=== PATIENT | male | born 2000 | race African-American/Black ===

== ENCOUNTER 2018-09-01 16:56 | Emergency (ER) | payer SELFPAY ==
--- NOTE | 2018-09-01 18:19 | EDPHYS ---
Physician Documentation [facility] Name: Bakari Starkey Age: 18 yrs Sex: Male : 2000 Arrival Date: 09/01/2018 Time: 16:59 Bed 7 Private MD: ED Physician Efren Cuevas HPI: 09/01 18:10 This 18 yrs old Black Male presents to ER via Ambulatory with complaints of Sore pm1 Throat, Cough. 18:10 The patient presents with sore throat. The patient describes throat pain as scratchy. pm1 Onset: The symptoms/episode began/occurred yesterday. Severity of symptoms: in the emergency department the symptoms are actually worse. Modifying factors: The symptoms are alleviated by nothing, the symptoms are aggravated by nothing, unaware of sick contact. Associated signs and symptoms: Pertinent positives: cough, flu-like symptoms, myalgias, rhinorrhea, Pertinent negatives chest pain, shortness of breath, vomiting. The patient has not experienced similar symptoms in the past. The patient has not recently seen a physician. No flu vaccination. Historical: - Allergies: 17:06 No Known Allergies; tw2 - Home Meds: 17:06 None [Active]; tw2 - PMHx: 17:06 None; tw2 - PSHx: 17:06 None; tw2 - Immunization history:: Adult Immunizations. - Social history:: Smoking status: Patient/guardian denies using tobacco. - Ebola Screening: : Patient denies exposure to infectious person Patient denies travel to an Ebola-affected area in the 21 days before illness onset. ROS: 18:10 Eyes: Negative for injury, pain, redness, and discharge, Neck: Negative for injury, pm1 pain, and swelling. 18:10 Cardiovascular: Negative for chest pain, palpitations, and edema, Respiratory: Negative for shortness of breath, cough, wheezing, and pleuritic chest pain, Abdomen/GI: Negative for abdominal pain, nausea, vomiting, diarrhea, and constipation, Back: Negative for injury and pain, : Negative for injury, bleeding, discharge, and swelling, MS/Extremity: Negative for injury and deformity, Skin: Negative for injury, rash, and discoloration, Neuro: Negative for headache, weakness, numbness, tingling, and seizure. 18:10 Constitutional: Positive for body aches, fever, Negative for poor PO intake. 18:10 ENT: Positive for rhinorrhea, sore throat, Negative for ear pain, sinus congestion, sinus pain, dental pain, difficulty swallowing, difficulty handling secretions, hoarseness. Exam: 18:10 Constitutional: This is a well developed, well nourished patient who is awake, alert, pm1 and in no acute distress. Head/Face: Normocephalic, atraumatic. Eyes: Pupils equal round and reactive to light, extra-ocular motions intact. Lids and lashes normal. Conjunctiva and sclera are non-icteric and not injected. Cornea within normal limits. Periorbital areas with no swelling, redness, or edema. ENT: Nares patent. No nasal discharge, no septal abnormalities noted. Tympanic membranes are normal and external auditory canals are clear. Oropharynx with no redness, swelling, or masses, exudates, or evidence of obstruction, uvula midline. Mucous membranes moist. Neck: Trachea midline, no thyromegaly or masses palpated, and no cervical lymphadenopathy. Supple, full range of motion without nuchal rigidity, or vertebral point tenderness. No Meningismus. Chest/axilla: Normal chest wall appearance and motion. Nontender with no deformity. No lesions are appreciated. Cardiovascular: Regular rate and rhythm with a normal S1 and S2. No gallops, murmurs, or rubs. Normal PMI, no JVD. No pulse deficits. Respiratory: Lungs have equal breath sounds bilaterally, clear to auscultation and percussion. No rales, rhonchi or wheezes noted. No increased work of breathing, no retractions or nasal flaring. Abdomen/GI: Soft, non-tender, with normal bowel sounds. No distension or tympany. No guarding or rebound. No evidence of tenderness throughout. Back: No spinal tenderness. No costovertebral tenderness. Full range of motion. Skin: Warm, dry with normal turgor. Normal color with no rashes, no lesions, and no evidence of cellulitis. MS/ Extremity: Pulses equal, no cyanosis. Neurovascular intact. Full, normal range of motion. 18:10 Neuro: Orientation: is normal, Motor: is normal, moves all fours, Sensation: is normal, no obvious gross deficits, Gait: Vital Signs: 17:03 BP 148 / 102; Pulse 114; Resp 19; Temp 99.0(TE); Pulse Ox 97% on R/A; Pain 4/10; tw2 17:05 Weight 105.19 kg (M); aj1 MDM: 17:10 Patient medically screened. pm1 18:10 Data reviewed: vital signs. Data interpreted: Pulse oximetry: on room air is 97 %. pm1 Interpretation: normal. Counseling: I had a detailed discussion with the patient and/or guardian regarding: the historical points, exam findings, and any diagnostic results supporting the discharge/admit diagnosis, lab results, the need for outpatient follow up, to return to the emergency department if symptoms worsen or persist or if there are any questions or concerns that arise at home. 09/01 17:16 Order name: Strep; Complete Time: 18:08 pm1 09/01 17:16 Order name: Flu; Complete Time: 18:08 pm1 09/01 18:09 Order name: Throat Culture EDMS Administered Medications: No medications were administered Disposition: 18:55 Co-signature as Attending Physician, Efren Cuevas MD Available for consultation at ps1 all times. . Disposition: 09/01/18 18:18 Discharged to Home. Impression: Influenza due to identified novel influenza A virus. - Condition is Stable. - Discharge Instructions: Influenza, Adult. - Prescriptions for Tamiflu 75 mg Oral Capsule - take 1 tablet by ORAL route every 12 hours for 5 days; 75 tablet. - Work release form, Medication Reconciliation Form, Thank You Letter, Antibiotic Education form. - Follow up: Emergency Department; When: As needed; Reason: Worsening of condition. Follow up: Private Physician; When: 2 - 3 days; Reason: Recheck today's complaints, Continuance of care, Re-evaluation by your physician. - Problem is new. - Symptoms have improved. Signatures: Dispatcher [employer] EDMS Jesus Padilla RN RN hj Andrzej Hammond, VETERANS' COORDINATOR VETERANS' COORDINATOR pm1 Margot Michel RN RN tw2 Efren Cuevas MD MD ps1 Corrections: (The following items were deleted from the chart) 18:36 18:18 09/01/2018 18:18 Discharged to Home. Impression: Influenza due to identified hj novel influenza A virus. Condition is Stable. Forms are Medication Reconciliation Form, Thank You Letter, Antibiotic Education, Prescription Opioid Use. Follow up: Emergency Department; When: As needed; Reason: Worsening of condition. Follow up: Private Physician; When: 2 - 3 days; Reason: Recheck today's complaints, Continuance of care, Re-evaluation by your physician. Problem is new. Symptoms have improved. pm1
--- NOTE | 2018-09-01 18:19 | ER ---
Nurse's Notes [facility] Name: Bakari Starkey Age: 18 yrs Sex: Male : 2000 Arrival Date: 09/01/2018 Time: 16:59 Bed 7 Private MD: Diagnosis: Influenza due to identified novel influenza A virus Presentation: 09/01 17:02 Presenting complaint: Patient states: 2 days ago when i cough it feels like i cant tw2 catch my breathe, runny nose. Transition of care: patient was not received from another setting of care. Onset of symptoms was September 01, 2018. Risk Assessment: Do you want to hurt yourself or someone else? Patient reports no desire to harm self or others. Initial Sepsis Screen: Does the patient meet any 2 criteria? HR > 90 bpm. Does the patient have a suspected source of infection? No. Patient's initial sepsis screen is negative. Care prior to arrival: None. 17:02 Method Of Arrival: Ambulatory tw2 17:26 Acuity: HOLLY 4 tw2 Triage Assessment: 17:06 General: Appears in no apparent distress. Behavior is calm, cooperative, appropriate tw2 for age. Pain: Complains of pain in throat. EENT: Reports pain when swallowing pain with cough and shortness of breath. Historical: - Allergies: 17:06 No Known Allergies; tw2 - Home Meds: 17:06 None [Active]; tw2 - PMHx: 17:06 None; tw2 - PSHx: 17:06 None; tw2 - Immunization history:: Adult Immunizations. - Social history:: Smoking status: Patient/guardian denies using tobacco. - Ebola Screening: : Patient denies exposure to infectious person Patient denies travel to an Ebola-affected area in the 21 days before illness onset. Screenin:07 Abuse screen: Denies threats or abuse. Denies injuries from another. Nutritional hj screening: No deficits noted. Tuberculosis screening: No symptoms or risk factors identified. Fall Risk None identified. Assessment: 17:08 Respiratory: Airway is patent Respiratory effort is even, unlabored, Respiratory hj pattern is regular, symmetrical, EENT: Throat Reports nasal discharge. 17:08 General: Appears in no apparent distress. uncomfortable, Behavior is calm, cooperative, hj appropriate for age. Pain: Complains of pain in throat. Neuro: Level of Consciousness is awake, alert, obeys commands, Oriented to person, place, time, situation, Appropriate for age. Cardiovascular: Capillary refill < 3 seconds Patient's skin is warm and dry. GI: No signs and/or symptoms were reported involving the gastrointestinal system. : No signs and/or symptoms were reported regarding the genitourinary system. Derm: No signs and/or symptoms reported regarding the dermatologic system. Musculoskeletal: No signs and/or symptoms reported regarding the musculoskeletal system. Vital Signs: 17:03 BP 148 / 102; Pulse 114; Resp 19; Temp 99.0(TE); Pulse Ox 97% on R/A; Pain 4/10; tw2 17:05 Weight 105.19 kg (M); aj1 ED Course: 16:59 Patient arrived in ED. mr 17:03 Triage completed. tw2 17:05 Jesus Padilla, RN is Primary Nurse. 17:06 Arm band placed on. tw2 17:08 Patient has correct armband on for positive identification. Bed in low position. Call hj light in reach. Side rails up X 1. 17:10 Andrzej Hammond NP is PHCP. pm1 17:10 Efren Cuevas MD is Attending Physician. pm1 17:31 Flu and/or RSV swab sent to lab. Strep swab sent to lab. 3 18:27 No provider procedures requiring assistance completed. Patient did not have IV access hj during this emergency room visit. Administered Medications: No medications were administered Outcome: 18:18 Discharge ordered by MD. pm1 18:28 Discharged to home ambulatory. 18:28 Condition: stable 18:28 Discharge instructions given to patient, Instructed on discharge instructions, follow up and referral plans. medication usage, Demonstrated understanding of instructions, follow-up care, medications, Prescriptions given X 1. 18:36 Patient left the ED. Signatures: Deisy Yang RN RN aj1 Kenneth Breann mr Jesus Padilla RN RN hj Marinas, Patrick, NP BRANCH CUSTOMER SERVICE REPRESENTATIVE pm1 Margot Michel RN RN 2 Melissa Greenwood 3 Corrections: (The following items were deleted from the chart) 17:26 17:02 Acuity: HOLLY 3 tw2 tw2
== END 2018-09-01 18:36 | disposition home or self-care (01) ==
LOC: ER 16:56
DX: J10.1 Influenza due to other identified influenza virus with other respiratory manifestations (principal)
CPT/HCPCS: 87070; 87081; 87804; 99283

== ENCOUNTER 2019-12-06 15:34 | Emergency (ER) | payer SELFPAY ==
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
[2019-12-06 16:54] VITALS: BP 132/71; TEMP 98; O2SAT 99
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
== END 2019-12-06 16:47 | disposition home or self-care (01) ==
LOC: ER 15:34
DX: S00.90XA Unspecified superficial injury of unspecified part of head, initial encounter (principal); S60.511A Abrasion of right hand, initial encounter; V47.5XXA Car driver injured in collision with fixed or stationary object in traffic accident, initial encounter
CPT/HCPCS: 70450; 70486; 76377; 99284

== ENCOUNTER 2020-05-07 13:01 | Emergency (ER) | payer SELFPAY ==
--- NOTE | 2020-05-07 14:49 | ER ---
Nurse's Notes [facility] Name: Bakari Starkey Age: 20 yrs Sex: Male : 2000 Arrival Date: 05/07/2020 Time: 13:04 Bed Waiting Private MD: Diagnosis: Presentation: 05/07 13:16 Chief complaint: Patient states: Hemorrhoids noticed yesterday. C/O of pain at the ca1 area, reports bleeding a little bit, bright red. Coronavirus screen: Client denies travel out of the [place] in the last 14 days. At this time, the client does not indicate any symptoms associated with coronavirus-19. The client denies any previous COVID testing. Ebola Screen: Patient negative for fever greater than or equal to 101.5 degrees Fahrenheit, and additional compatible Ebola Virus Disease symptoms Patient denies exposure to infectious person. Patient denies travel to an Ebola-affected area in the 21 days before illness onset. No symptoms or risks identified at this time. Initial Sepsis Screen: Does the patient meet any 2 criteria? No. Patient's initial sepsis screen is negative. Does the patient have a suspected source of infection? No. Patient's initial sepsis screen is negative. Risk Assessment: Do you want to hurt yourself or someone else? Patient reports no desire to harm self or others. Onset of symptoms was May 07, 2020. 13:16 Method Of Arrival: Ambulatory ca1 13:16 Acuity: HOLLY 4 ca1 Historical: - Allergies: 13:19 No Known Allergies; ca1 - Home Meds: 13:19 None [Active]; ca1 - PMHx: 13:19 None; ca1 - PSHx: 13:19 None; ca1 - Immunization history:: Adult Immunizations not up to date. - Social history:: Smoking status: Patient denies any tobacco usage or history of. Vital Signs: 13:16 BP 152 / 101; Pulse 82; Resp 16 S; Temp 97.5(TE); Pulse Ox 98% ; Weight 90.72 kg (R); ca1 Height 5 ft. 10 in. (177.80 cm) (R); Pain 8/10; 13:16 Body Mass Index 28.70 (90.72 kg, 177.80 cm) ca1 ED Course: 13:04 Patient arrived in ED. as 13:18 Triage completed. ca1 13:19 Arm band placed on right wrist. ca1 14:48 Patient's name was called from ER lobby. No response. Unable to locate patient. Will ca1 disposition as left without being seen by a provider. Administered Medications: No medications were administered Outcome: 14:49 Patient left the ED. ca1 Signatures: Barbara Ott Cheryl RN RN ca1
[2020-05-07 15:14] VITALS: BP 152/101; TEMP 97.5; O2SAT 98
== END 2020-05-07 14:49 | disposition left against medical advice (07) ==
LOC: ER 13:01
DX: Z53.21 Procedure and treatment not carried out due to patient leaving prior to being seen by health care provider (principal)
CPT/HCPCS: 99281

== ENCOUNTER 2024-11-14 07:50 | Emergency (ER) | payer SELFPAY ==
--- NOTE | 2024-11-14 08:53 | RAD REPORT ---
EXAMINATION: XR LEFT FOOT CLINICAL INDICATION: dropped brick on 4th toe;Pain TECHNIQUE: Multiple projections of the left foot were obtained. COMPARISON: No prior exam. FINDINGS: Soft tissue swelling affects the fourth toe. No acute fracture or dislocation seen. Tiny ca lcaneal spur.
--- NOTE | 2024-11-14 09:07 | ER ---
Nurse's Notes [facility] Name: Bakari Starkey Age: 24 yrs Sex: Male : 2000 Arrival Date: 11/14/2024 Time: 07:50 Bed 19 Private MD: Diagnosis: Contusion of left lesser toe(s) without damage to nail, initial encounter Presentation: 11/14 08:05 Chief complaint: Patient states: he dropped a brick on the 4th toe of his left foot ap3 last night. patient is complaining of pain and bruising to the toe. patient currently rates his pain as an 8/10 on the pain scale. Coronavirus screen: At this time, the client does not indicate any symptoms associated with coronavirus-19. Ebola Screen: No symptoms or risks identified at this time. Initial Sepsis Screen: Does the patient meet any 2 criteria? No. Patient's initial sepsis screen is negative. Does the patient have a suspected source of infection? No. Patient's initial sepsis screen is negative. Risk Assessment: Do you want to hurt yourself or someone else? Patient reports no desire to harm self or others. Onset of symptoms was November 13, 2024. 08:05 Method Of Arrival: Ambulatory ap3 08:05 Acuity: HOLLY 4 ap3 Triage Assessment: 08:06 General: Appears in no apparent distress. Behavior is calm, cooperative, appropriate ap3 for age. Pain: Complains of pain in left fourth toe Pain currently is 8 out of 10 on a pain scale. Pain began suddenly, 1 day ago. Neuro: Level of Consciousness is awake, alert, obeys commands, Oriented to person, place, time, situation, Appropriate for age Gait is steady. Cardiovascular: Patient's skin is warm and dry. Respiratory: Airway is patent Respiratory effort is even, unlabored, Respiratory pattern is regular, symmetrical. Derm: Bruising that is dark purple, on left fourth toe. Musculoskeletal: Range of motion: intact in all extremities. Injury Description: brick fell on 4th left toe. Historical: - Allergies: 08:06 No Known Allergies; ap3 - Home Meds: 08:06 None [Active]; ap3 - PMHx: 08:06 None; ap3 - Immunization history:: Client reports having NOT received the Covid vaccine. - Infectious Disease History:: Denies. - Social history:: Smoking status: Patient denies any tobacco usage or history of. - Family history:: not pertinent. - Hospitalizations: : No recent hospitalization is reported. Screenin:08 [facility] ED Fall Risk Assessment (Adult) History of falling in the last 3 months, ap3 including since admission No falls in past 3 months (0 pts) Confusion or Disorientation No (0 pts) Intoxicated or Sedated No (0 pts) Impaired Gait No (0 pts) Mobility Assist Device Used No (0 pt) Altered Elimination No (0 pt) Score/Fall Risk Level 0 - 2 = Low Risk Oriented to surroundings, Maintained a safe environment, Educated pt \T\ family on fall prevention, incl call for assistance when getting out of bed, Assessed \T\ reinforced patient's understanding of fall precautions, Hourly rounding (assess needs \T\ fall precautionary measures) done, Used ambulatory aids as needed (educated on \T\ assisted with). Abuse screen: Denies threats or abuse. Nutritional screening: No deficits noted. Tuberculosis screening: No symptoms or risk factors identified. Vital Signs: 08:05 BP 131 / 81; Pulse 70; Resp 17; Temp 97.6; Pulse Ox 100% ; Weight 121 kg; Pain 8/10; ap3 09:26 BP 124 / 83; Pulse 81; Resp 17; Pulse Ox 100% ; ap3 08:05 Pain Scale: Adult ap3 ED Course: 07:54 Patient arrived in ED. im 07:55 Ishan Marin MD is Attending Physician. rn 08:05 Inna Farrar RN is Primary Nurse. ap3 08:06 Triage completed. ap3 08:08 Arm band placed on right wrist. ap3 08:08 Patient has correct armband on for positive identification. Bed in low position. Call ap3 light in reach. Side rails up X 1. Provided Education on: call light education . 08:37 XRAY Foot LEFT 3 View In Process Unspecified. EDMS 09:27 No provider procedures requiring assistance completed. Patient did not have IV access ap3 during this emergency room visit. Administered Medications: No medications were administered Medication: :27 VIS not applicable for this client. ap3 Outcome: 09:06 Discharge ordered by . rn 09:27 Discharged to home ambulatory, ap3 09:27 Condition: good :27 Discharge instructions given to patient, Instructed on discharge instructions, follow up and referral plans. Demonstrated understanding of instructions, follow-up care, 09:27 Patient left the ED. ap3 Signatures: Dispatcher [employer] EDIshan Soria MD MD rn Inna Farrar RN RN ap3 Dot Dodd
--- NOTE | 2024-11-14 09:07 | EDPHYS ---
Physician Documentation [facility] Name: Bakari Starkey Age: 24 yrs Sex: Male : 2000 Arrival Date: 11/14/2024 Time: 07:50 Bed 19 Private MD: ED Physician Ishan Marin HPI: 11/14 08:07 This 24 yrs old Black Male presents to ER via Ambulatory with complaints of Foot Injury rn - left. 08:07 The patient presents with pain, that is acute. The complaints affect the left foot. rn Onset: The symptoms/episode began/occurred last night. Modifying factors: The symptoms are alleviated by nothing, the symptoms are aggravated by weight bearing, movement. Severity of symptoms: At their worst the symptoms were moderate, in the emergency department the symptoms are unchanged. The patient has not experienced similar symptoms in the past. Patient reports dropped a brick on his left fourth toe last night while helping someone move. Was wearing regular shoes. Reports isolated injury to the fourth toe of the left foot. Hurts to bear weight. No open wounds.. Historical: - Allergies: 08:06 No Known Allergies; ap3 - Home Meds: 08:06 None [Active]; ap3 - PMHx: 08:06 None; ap3 - Immunization history:: Client reports having NOT received the Covid vaccine. - Infectious Disease History:: Denies. - Social history:: Smoking status: Patient denies any tobacco usage or history of. - Family history:: not pertinent. - Hospitalizations: : No recent hospitalization is reported. ROS: 08:07 Constitutional: Negative for fever, chills, and weight loss, MS/Extremity: Positive for rn left fourth toe injury and swelling Skin: Negative for laceration Neuro: Negative for weakness or numbness Exam: 08:07 Constitutional: This is a well developed, well nourished patient who is awake, alert, rn and in no acute distress. MS/ Extremity: Pulses equal, no cyanosis. Neurovascular intact. Mild swelling with partial subungual hematoma noted to the left fourth toenail, tenderness to entire left fourth toe. No laceration. No tenderness of the ankle or foot proper otherwise. No tenderness or deformity of other toes. Vital Signs: 08:05 BP 131 / 81; Pulse 70; Resp 17; Temp 97.6; Pulse Ox 100% ; Weight 121 kg; Pain 8/10; ap3 09:26 BP 124 / 83; Pulse 81; Resp 17; Pulse Ox 100% ; ap3 08:05 Pain Scale: Adult ap3 MDM: 07:55 Medical Screening Exam initiated rn 09:06 Differential diagnosis: fracture, sprain. Data reviewed: vital signs, nurses notes, rn radiologic studies, plain films, and as a result, I will discharge patient. Independent interpretation of the following test(s) in the Emergency Department X-Ray: My interpretation is X-ray left foot negative for fracture or dislocation per my interpretation. Counseling: I had a detailed discussion with the patient and/or guardian regarding the historical points, exam findings, and any diagnostic results supporting the discharge/admit diagnosis, radiology results, the need for outpatient follow up, to return to the emergency department if symptoms worsen or persist or if there are any questions or concerns that arise at home. Special discussion: I discussed with the patient/guardian in detail that at this point there is no indication for admission to the hospital. It is understood, however, that if the symptoms persist or worsen the patient needs to return immediately for re-evaluation. 11/14 08:04 Order name: XRAY Foot LEFT 3 View; Complete Time: 08:59 rn Administered Medications: No medications were administered Disposition Summary: 11/14/24 09:06 Discharge Ordered Notes: Location: Home rn Problem: new rn Symptoms: have improved rn Condition: Stable rn Diagnosis - Contusion of left lesser toe(s) without damage to nail, initial encounter rn Followup: rn - With: Private Physician - When: As needed - Reason: Recheck today's complaints, Re-evaluation by your physician Discharge Instructions: - Discharge Summary Sheet rn - Foot Contusion rn Forms: - Medication Reconciliation Form rn - Antibiotic corporate associate attorney - Prescription Opioid Use rn - Patient Portal Instructions rn - Leadership Thank You Letter rn - Work release form [email or web address] Signatures: Dispatcher [employer] EDIshan Soria MD MD rn Prokisch, Amanda, RN RN ap3 Corrections: (The following items were deleted from the chart) 08:05 08:05 Foot Left 3 View+RAD.RAD.BRZ ordered. EDDC ED
[2024-11-14 09:32] VITALS: TEMP 97.6; O2SAT 100
[2024-11-14 09:35] VITALS: BP 124/83
== END 2024-11-14 09:27 | disposition home or self-care (01) ==
LOC: ER 07:50
DX: S90.122A Contusion of left lesser toe(s) without damage to nail, initial encounter (principal)
CPT/HCPCS: 99282